=== PATIENT | female | born 1975 | race Caucasian/White ===

== ENCOUNTER 2025-07-20 19:38 | Observation (INO) | payer MEDICARE, OTHER, SELFPAY ==
[2025-07-20] VITALS (7 sets, daily range): BP systolic 128–173; BP diastolic 66–95; BMI 25.8; BMI 25.3; BMI 25.4
--- NOTE | 2025-07-20 15:11 | ED.GENMED ---
History of Present Illness
<Yoandy Lamas PA-C - Last Filed: 07/20/25 21:24>
General
Chief Complaint: Allergic Reaction
Time Seen by Provider: 07/20/25 14:56
History of Present Illness
History of Present Illness:
49-year-old female with history of severe anaphylaxis to numerous allergens presents to the emergency department for evaluation of chest tightness and full body rash. States that she suspects she came into contact with someone who had dog hair on
them. She used her EpiPen twice most recently 45 minutes prior to my evaluation. She reports chest tightness and hoarseness at this time. Rash seems to have resolved. She states that she has a lengthy history of complicated allergic reactions
and often times requires multiple day admission to the hospital for IV steroids to be slowly tapered
Review of Systems
<Yoandy Lamas PA-C - Last Filed: 07/20/25 21:24>
Review of Systems
Allergies reviewed?: Yes
All Other Systems: ROS reviewed and negative except as documented in HPI and ROS
Phy Exam
<Yoandy Lamas PA-C - Last Filed: 07/20/25 21:24>
Physical Exam
Physical Exam:
GEN: Well appearing, NAD, WDWN
HEENT: Oral mucosa moist, no scleral icterus
Cardiac: Mildly tachycardic, regular
Lung: No respiratory distress, no tachypnea, lungs clear to auscultation
MSK: No gross deformity or injuries
Skin: Good color, no pallor or jaundice, no rashes or urticaria
Neuro: AO x3, moves all extremities freely
Psych: Calm, cooperative
Course
<Yoandy Lmaas PA-C - Last Filed: 07/20/25 21:24>
Orders/Labs/Results
Orders:
Orders
07/20/25 14:48
EKG [Electrocardiogram (*1)] Urgent
Reason for Study: Tachycardia
07/20/25 14:49
EKG- Treatment ONCE
07/20/25 15:10
Diphenhydramine [Benadryl] 25 mg IV NOW STA
Famotidine [Pepcid] 20 mg IV NOW STA
MethylPREDNISolone PF [Solu-Medrol Pf] 60 mg IV NOW STA
07/20/25 15:11
Albuterol Nebs [Ventolin Nebules] 5 mg INH R NOW STA
07/20/25 15:30
Complete Blood Count/No Diff Urgent
Comprehensive Metabolic Panel Urgent
07/20/25 15:40
Ropinirole [Requip] 2 mg PO NOW STA
07/20/25 16:17
0.9% Sodium Chloride 1000 ml [Nss] 1,000 ml IV BOLUS
07/20/25 16:41
BMP [Basic Metabolic Panel] Stat
07/20/25 18:16
Potassium Chloride [KCl] 20 meq PO NOW STA
07/20/25 18:31
Diphenhydramine [Benadryl] 25 mg IV NOW STA
07/20/25 19:14
Admit/Transfer Patient As Directed
Co-Sign Provider:
Level of Care: Observation services
Assign to:: Telemetry
Physician / Group: Danilo Rojas
Diagnosis: allergic reaction
Reason for Telemetry: Arrhythmia
Date to Stop Telemetry: 07/23/25
Time to Stop Telemetry: 11:00
PRN Pain Medication Management As Directed
May give lesser potent ordered pain med per pt: Yes
preference::
Protocol:: Medication orders for pain may be administered in a
manner that supports deferring to patient preference
when the pt is:
- Requesting an ordered lesser potent pain medication.
Least to most potent pain medications are defined
as: acetaminophen < NSAID < tramadol < opioids
(morphine, oxycodone, hydromorphone).
- Requesting a lesser dose of the same medication IF
ORDERED.
- Requesting a less intrusive route of administration
if both routes are prescribed by the provider (PO <
IV).
07/20/25 19:15
Code Status As Directed
Resuscitation Status: Full Code
07/20/25 19:22
Potassium Chloride [KCl] 20 meq 0.9% Sodium Chloride 150 ml [Nss] 150 ml IV NOW
07/20/25 20:53
Diphenhydramine [Benadryl] 25 mg IV Q6HPRN PRN
07/20/25 20:53
Activity As Directed
Activity Level: Ambulate
Pneumatic Compression Sleeves As Directed
Type: Knee high
Vital Signs As Directed
Frequency: Per unit guidelines
Weight As Directed
Frequency: Once
Comment: on admission
Pulse Ox/spot Check [RESP] Routine
Quantity: 1
DX Deep Vein Thrombosis Video Routine
07/21/25 00:00
MethylPREDNISolone PF [Solu-Medrol Pf] 40 mg IV Q8H
07/21/25 Breakfast
Regular
Basic Metabolic Panel IN AM
07/23/25 11:00
DC Protocol for Telemetry ONCE
Abnormal Lab Results
07/20/25 07/20/25
15:30 16:41
WBC 11.2 H 10^3/uL
(4.8-10.8)
Sodium 165 H* mmol/L
(135-145)
Potassium 3.3 L mmol/L 2.8 L mmol/L
(3.5-5.1) (3.5-5.1)
Glucose 135 H mg/dl 114 H mg/dl
(70-99) (70-99)
ALT 41 H U/L
(0-35)
07/20/25 15:30
07/20/25 16:41
Vital Signs
Initial and Last Documented VS:
Initial Vital Signs
Temp Pulse Resp BP Pulse Ox
98.6 F 105 16 173/95 100
07/20/25 14:52 07/20/25 14:52 07/20/25 14:52 07/20/25 14:52 07/20/25 14:52
Last Documented Vital Signs
Temp Pulse Resp BP Pulse Ox
98.2 F 91 16 152/88 97
07/20/25 20:56 07/20/25 20:56 07/20/25 20:56 07/20/25 20:56 07/20/25 20:56
<Hunter Dinero, DO - Last Filed: 07/20/25 16:27>
Orders/Labs/Results
Orders:
Orders
07/20/25 14:48
EKG [Electrocardiogram (*1)] Urgent
Reason for Study: Tachycardia
07/20/25 14:49
EKG- Treatment ONCE
07/20/25 15:10
Diphenhydramine [Benadryl] 25 mg IV NOW STA
Famotidine [Pepcid] 20 mg IV NOW STA
MethylPREDNISolone PF [Solu-Medrol Pf] 60 mg IV NOW STA
07/20/25 15:11
Albuterol Nebs [Ventolin Nebules] 5 mg INH R NOW STA
07/20/25 15:30
Complete Blood Count/No Diff Urgent
Comprehensive Metabolic Panel Urgent
07/20/25 15:40
Ropinirole [Requip] 2 mg PO NOW STA
07/20/25 16:17
0.9% Sodium Chloride 1000 ml [Nss] 1,000 ml IV BOLUS
07/20/25 16:41
BMP [Basic Metabolic Panel] Stat
07/20/25 18:16
Potassium Chloride [KCl] 20 meq PO NOW STA
07/20/25 18:31
Diphenhydramine [Benadryl] 25 mg IV NOW STA
07/20/25 19:14
Admit/Transfer Patient As Directed
Co-Sign Provider:
Level of Care: Observation services
Assign to:: Telemetry
Physician / Group: Danilo Rojas
Diagnosis: allergic reaction
Reason for Telemetry: Arrhythmia
Date to Stop Telemetry: 07/23/25
Time to Stop Telemetry: 11:00
PRN Pain Medication Management As Directed
May give lesser potent ordered pain med per pt: Yes
preference::
Protocol:: Medication orders for pain may be administered in a
manner that supports deferring to patient preference
when the pt is:
- Requesting an ordered lesser potent pain medication.
Least to most potent pain medications are defined
as: acetaminophen < NSAID < tramadol < opioids
(morphine, oxycodone, hydromorphone).
- Requesting a lesser dose of the same medication IF
ORDERED.
- Requesting a less intrusive route of administration
if both routes are prescribed by the provider (PO <
IV).
07/20/25 19:15
Code Status As Directed
Resuscitation Status: Full Code
07/20/25 19:22
Potassium Chloride [KCl] 20 meq 0.9% Sodium Chloride 150 ml [Nss] 150 ml IV NOW
07/20/25 20:53
Diphenhydramine [Benadryl] 25 mg IV Q6HPRN PRN
07/20/25 20:53
Activity As Directed
Activity Level: Ambulate
Pneumatic Compression Sleeves As Directed
Type: Knee high
Vital Signs As Directed
Frequency: Per unit guidelines
Weight As Directed
Frequency: Once
Comment: on admission
Pulse Ox/spot Check [RESP] Routine
Quantity: 1
DX Deep Vein Thrombosis Video Routine
07/21/25 00:00
MethylPREDNISolone PF [Solu-Medrol Pf] 40 mg IV Q8H
07/21/25 Breakfast
Regular
Basic Metabolic Panel IN AM
07/23/25 11:00
DC Protocol for Telemetry ONCE
Abnormal Lab Results
07/20/25 07/20/25
15:30 16:41
WBC 11.2 H 10^3/uL
(4.8-10.8)
Sodium 165 H* mmol/L
(135-145)
Potassium 3.3 L mmol/L 2.8 L mmol/L
(3.5-5.1) (3.5-5.1)
Glucose 135 H mg/dl 114 H mg/dl
(70-99) (70-99)
ALT 41 H U/L
(0-35)
07/20/25 15:30
07/20/25 16:41
Vital Signs
Initial and Last Documented VS:
Initial Vital Signs
Temp Pulse Resp BP Pulse Ox
98.6 F 105 16 173/95 100
07/20/25 14:52 07/20/25 14:52 07/20/25 14:52 07/20/25 14:52 07/20/25 14:52
Last Documented Vital Signs
Temp Pulse Resp BP Pulse Ox
98.2 F 91 16 152/88 97
07/20/25 20:56 07/20/25 20:56 07/20/25 20:56 07/20/25 20:56 07/20/25 20:56
<Yoandy Lamas PA-C - Last Filed: 07/20/25 21:24>
MDM/Problems Addressed
MDM/Problems Addressed:
Patient is quite insistent that her allergy history will result in a rebound phenomenon and she is hesitant about going home. She was requesting repeat dosing of steroids and epinephrine which I do not feel is appropriate at this time. Will place
in observation for ongoing management
<Yoandy Lamas PA-C - Last Filed: 07/20/25 21:24>
Comment
Comment:
EKG independently interpreted by me shows a sinus tachycardia at a rate of [address] changes
*Pulse Oximetry
SaO2: 100
Oxygen Mode of Delivery: Room air
Patient hypoxic: no
*Critical Care Note
Total Time (30-74mins, 75-104mins- exclusive of procedures): Not Applicable
ED Attending Note
<Yoandy Lamas PA-C - Last Filed: 07/20/25 21:24>
-
Portions of this chart may have been created with voice recognition software.� Occasional wrong word or��sound alike� substitutions may have occurred due to the inherent limitations of voice recognition software.
<Hunter Dinero DO - Last Filed: 07/20/25 16:27>
ED Attending Note
Patient seen and examined by attending physician: Yes
I performed the substantive portion of visit, reviewed & personally made and approve the management plan that is documented in note by myself or ALEX.: Yes
ED Attending Note:
Seen with PA examined independently 49-year-old female severe allergies apparently was seen at [place] [address] recently with neurosymptoms discharged home was exposed to some dogs in a car that she recently bought, states she had some cough and wheeze
similar to her allergy anaphylaxis, received extensive meds, when I evaluated her respiratory rivera she appears stable her sodium was 161 she is unclear if she has been drinking fluids at this point I would repeat it, start her on normal saline, low
threshold to admit
Discharge Plan
Departure
Patient Disposition: Admit
Date of Disposition: 07/20/25
Time of Disposition: 17:50
Admit to: Med/Surg
Presentation/result/management discussed w/ accepting MD/DO: Hospitalist
Discharge Problem:
Allergic reaction
Interventions
Interventions:
*General Assessment Last Done: 07/20/25 14:57
*Neglect/Abuse Screening Last Done: 07/20/25 14:57
*ED COVID-19 Vaccine History Last Done: 07/20/25 21:02
*ED Influenza Vaccine History Last Done: 07/20/25 20:46
[facility] Fall Risk Assessment Tool Last Done: 07/20/25 18:00
*Risk Screen - Suicide (C-SSRS) Last Done: 07/20/25 20:46
*Nursing Disposition Last Done: 07/20/25 20:46
ED- Cardiac Assessment Last Done: 07/20/25 14:49
ED- Pulmonary Assessment Last Done: 07/20/25 14:49
ED-Skin Assessment Last Done: 07/20/25 14:49
Discharge Date and Time
Discharge Date/Time: 07/20/25 20:48
[2025-07-20] MEDS: VENTOLIN NEBULES 5 MG INH (15:35)
[2025-07-20] MEDS: PEPCID 20 MG IV (15:35)
[2025-07-20] MEDS: SOLU-MEDROL PF 60 MG IV (15:35)
[2025-07-20] MEDS: BENADRYL 25 MG IV ×2 (15:36→18:37)
[2025-07-20 15:50] LABS: Hematocrit 37.8 % (37.0-47.0); Hemoglobin 13.5 g/dL (12.0-16.0); Mean Corp Hgb Conc. 35.7 g/dL (33.0-37.0); Mean Corpuscular Volume 85.1 fL (81.0-99.0); Platelet Count 290 10^3/uL (130-400); Red Cell Dist. Width 12.2 % (11.5-14.5)
[2025-07-20 16:10] LABS: ALT (SGPT) 41 U/L (0-35); AST (SGOT) 34 U/L (14-36); Albumin 4.9 g/dl (3.5-5.0); Alkaline Phosphatase 77 U/L (38-126); Blood Urea Nitrogen 10 mg/dl (7-17); Calcium 9.8 mg/dl (8.4-10.2); Carbon Dioxide 23 mmol/L (22-30); Chloride 103 mmol/L (98-107); Estimated Creatinine Clearance 99 ml/min; Glucose 135 mg/dl (70-99); Potassium 3.3 mmol/L (3.5-5.1); Sodium 165 mmol/L (135-145); Total Protein 7.1 g/dl (6.3-8.2); eGFR > 60.00
[2025-07-20] MEDS: REQUIP 2 MG PO ×2 (16:50→23:01)
[2025-07-20] MEDS: NSS 1000 IV (16:52)
[2025-07-20 17:14] LABS: Blood Urea Nitrogen 9 mg/dl (7-17); Calcium 10.1 mg/dl (8.4-10.2); Carbon Dioxide 25 mmol/L (22-30); Chloride 106 mmol/L (98-107); Estimated Creatinine Clearance 99 ml/min; Glucose 114 mg/dl (70-99); Potassium 2.8 mmol/L (3.5-5.1); Sodium 139 mmol/L (135-145); eGFR > 60.00
--- NOTE | 2025-07-20 18:33 | HPS.HSE ---
Family Physician
-
Family Physician: Di Chakraborty
Chief Complaint
-
allergic reaction
History of Present Illness
Patient is a 49-year-old female with past medical history significant for severe anaphylaxis to numerous allergens who presented to [facility] ED for evaluation of anaphylactic response to exposure to dog dander. Patient report purchasing a new car and
tech has a dog and sat in car without informing her. When she got into car to leave she had anaphylactic response self administering 2 doses of epi. Patient notes she had reaction to cat dander yesterday and was discharged from [facility] too soon
which she believes contributed to today's response. Patient follows with, [facility], Dr. Walter Courtney for mooner. Patient reports severe itching, diffuse skin rash, thightness in chest, wheezing and shortness of breath.
Medical History
Past Medical History
Past Medical History: Reports Other
Additional Past Medical History:
severe anaphylaxis to numerous allergens
night terrors
type 2 diabetes
depression/anxiety
GERD
Hx SVT
Hx brain anuersym x2 (stable)
Past Surgical History: Reports Other
Additional Past Surgical History:
gastric bypass
cholecystectomy
cardiac ablation x2
spinal surgery
Social History
Tobacco: Non-smoker
Family History
Family History: Not pertinent
Allergies / Home Medications
Allergies reflects when Allergies were last updated in [employer].
Home Medications with original date entered in [employer]
Allergy/Medication List:
Allergies
Allergy/AdvReac Type Severity Reaction Status Date / Time
amoxicillin (From Augmentin) Allergy Unknown Verified 07/20/25 14:51
bee venom protein (honey bee) Allergy Anaphylaxis Verified 07/20/25 14:51
benzoin Allergy Rash Verified 07/20/25 14:51
cat dander Allergy Anaphylaxis Verified 07/20/25 14:51
clavulanic acid (From Allergy Unknown Verified 07/20/25 14:51
Augmentin)
dog dander Allergy Anaphylaxis Verified 07/20/25 14:51
Iodinated Contrast Media Allergy Anaphylaxis Verified 07/20/25 14:51
latex Allergy Rash Verified 07/20/25 14:51
nitrofurantoin (From Allergy Unknown Verified 07/20/25 14:51
Macrobid)
povidone-iodine (From Allergy Rash Verified 07/20/25 14:51
Betadine)
shellfish derived Allergy Anaphylaxis Verified 07/20/25 14:51
Sulfa (Sulfonamide Allergy Unknown Verified 07/20/25 14:51
Antibiotics)
tree nut Allergy Anaphylaxis Verified 07/20/25 14:51
Home Medications
Milk of Magnesia 1 dose PO DAILYPRN PRN constipation 07/20/25
Miralax 1 dose PO DAILYPRN PRN constipation 07/20/25
Phazyme 3 tab PO DAILYPRN PRN gas 07/20/25
krwvoxr-msveuwahuxili-lhjtlyuj 250 mg-250 mg-65 mg tablet (Headache Relief (PAB-tqqjbrnjzqog-zzcfkegm)) 2 tab PO DAILYPRN PRN headache 07/20/25
betamethasone dipropionate 0.05 % topical cream 1 applic topical DAILY PRN eczema 07/20/25
budesonide 0.5 mg/2 mL suspension for nebulization 0.5 mg inhalation R QIDPRN PRN sob 07/20/25
budesonide-formoterol HFA 160 mcg-4.5 mcg/actuation aerosol inhaler 2 puff inhalation .SEE BELOW PRN sob 07/20/25
bupropion HCl 200 mg tablet,12 hr sustained-release 0 mg PO .SEE BELOW Mental Health/Anxiety 07/20/25
diazepam 5 mg tablet 5 mg PO DAILYPRN PRN anxiety 07/20/25
epinephrine 2 mg/spray (0.1 mL) nasal spray (neffy) 2 mg intranasal ONCE PRN anaphylaxis 07/20/25
estradiol 0.05 mg/24 hr weekly transdermal patch 1 patch transdermal AVILES Hormonal Agent 07/20/25
famotidine 40 mg tablet 40 mg PO QPM Gastrointestinal Issue 07/20/25
fludrocortisone 0.1 mg tablet 0.1 mg PO BID Anti-Inflammatory 07/20/25
levalbuterol HCl 0.63 mg/3 mL solution for nebulization 0.63 mg inhalation R QIDPRN PRN sob 07/20/25
magnesium citrate 1 dose PO DAILYPRN PRN constipation 07/20/25
montelukast 10 mg tablet 10 mg PO QPM Lung/Breathing Issues 07/20/25
mupirocin 2 % topical ointment 1 applic topical QWEEK nose 07/20/25
pantoprazole 40 mg tablet,delayed release 40 mg PO BID Gastrointestinal Issue 07/20/25
ropinirole 1 mg tablet 1 mg PO DAILY PRN restless legs 07/20/25
ropinirole 1 mg tablet 1 mg PO NOON Neurological Condition 07/20/25
ropinirole 1 mg tablet 2 mg PO DAILY@1900 Neurological Condition 07/20/25
rosuvastatin 20 mg tablet 20 mg PO QPM High Cholesterol 07/20/25
tirzepatide 12.5 mg/0.5 mL subcutaneous pen injector (Mounjaro) 12.5 mg SC AVILES Diabetes 07/20/25
trazodone 100 mg tablet 100 mg PO HS PRN sleep 07/20/25
valacyclovir 500 mg tablet 500 mg PO DAILY Infection 07/20/25
methylprednisolone 4 mg tablet (Medrol) 4 mg PO DAILY #63 tabs 07/21/25
Review of Systems
-
History Source: Patient
Constitutional: Denies Fever or Chills
EENT: Reports Sore Throat and Other (tingling/itchy tongue )
Respiratory: Reports Trouble Breathing; Denies Cough or Hemoptysis
Cardiac: Reports Syncope; Denies Chest Pain, Diaphoresis or Palpitations
Abdomen/GI: Denies Abdominal Pain, Nausea, Vomiting or Diarrhea
: Denies Dysuria, Frequency or Urgency
Musculoskeletal: Denies Joint Pain
Skin: Reports Itching and Rash
Neurological: Reports Headache; Denies Dizzy, Weakness or Numbness
Physical Exam
Vital Signs
Vital Signs
Temp Pulse Resp BP Pulse Ox
98.2 F 106 16 164/89 100
07/20/25 15:03 07/20/25 15:03 07/20/25 15:03 07/20/25 15:03 07/20/25 15:11
Physical Exam
General: Well Developed, Well Nourished, No Apparent Distress and Conversant
HEENT: NormoCephalic, Moist mucous membranes, Nose Appears Normal and Ears Appear Normal
Respiratory: Clear and Non Labored Respirations; No Wheezes, Rales or Rhonchi
Cardiac: S1/S2 and Regular Rhythm; No Murmur
GI: Soft, Non Tender, Non Distended and Normal Bowel Sounds
Musculoskeletal: No Clubbing, No Cyanosis and No Edema
Skin: Warm and IV/Catheter Site; No Rash or Jaundice
Neuro: Awake and AO x 3
Psych: Calm
Laboratory Results
-
07/20/25 15:30
07/20/25 16:41
Laboratory Results
Total Bilirubin 0.5 mg/dl (0.2-1.3) 07/20/25 15:30
AST 34 U/L (14-36) 07/20/25 15:30
ALT 41 U/L (0-35) H 07/20/25 15:30
Alkaline Phosphatase 77 U/L (38-126) 07/20/25 15:30
Data Reviewed
-
Lab Data: Labs Reviewed by me (WBC 11.2, Na 165 and then 139, K 3.3 then 2.8)
Impression/Plan
-
IMPRESSION/PLAN:
#exposure to allergen with anaphylactic response
#severe anaphylaxis to numerous allergens
reports exposure to dog dander in [employer] car, itching, rash, wheezing, hoarseness in voice, patient self administered epi x2
WBC 11.2
s/p IV Benadryl 25 x 2 + IV Methylprednisone 60mg x1 + IV Pepcid + Nebs
- Admit to med/surg for observation
- Solu-Medrol 40mg q8
- Benadryl 25mg q6h PRN
- supportive care
#hypernatremia
Na 165 and then 139
received 1L bolus in ED and Na+ improved
- monitor BMP
#hypokalemia
K 3.3 then 2.8
repleted in ED with PO and K-rider
- monitor BMP
*pending med rec to be completed*
Code status: full code
DVT prophylaxis: SCDs
[2025-07-20] MEDS: KCL 20 MEQ PO (18:37)
--- NOTE | 2025-07-20 18:52 | W.PN.UPDATE ---
Update Note
Progress Note Update
This note serves as an addendum to the H&P by clamp carrier operator Darcy Santos
HPI
49F HX Poly pharmacy allergy, HX severe anaphylaxis to numerous allergens seen at ER:
- for evaluation of Carmel with full body rash.
- suspects she came into contact with someone who had dog hair on them.
- used her EpiPen twice most recently 45 minutes prior to ER evaluation.
- reports chest tightness and hoarseness at this time.
- Rash seems to have resolved.
ER Tx
- IV Benadryl 25 x2
- IV Methyl prednisone 60mg x1
- IV Pepcid
- Nebs
Relevant VS
Temp Pulse Resp BP Pulse Ox
98.2 F 99 18 148/85 99
07/20/25 18:00 07/20/25 18:00 07/20/25 18:00 07/20/25 18:00 07/20/25 18:00
PE
looks comfortable
HEENT: moist OM , Daisha tonsil
Neck: tachycardic
Lungs: CTA
Cor: Tachycardic
Abdomen:�soft, NT, NG, NRT
SHOE WORKER: AAO3
MS: No edema
Skin - warm and diffusely red on the chest
Relevant Data
07/20/25 07/20/25
15:30 16:41
WBC 11.2 H
Potassium 2.8 L
eGFR > 60.00
Glucose 114 H
ASSESSMENT & PLAN
Pending Rx reconciliation
Allergic reaction involving rash, Carmel and hoarseness of voice
- Uncertain precipitant suspect dog hair on them
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
- s/p - IV Benadryl 25 x 2 + IV Methylprednisone 60mg x1 + IV Pepcid + Nebs
- Empiric IV Methyl prednisone 40 q8H
- IV Benadryl 25mg q6h PRN
DVT Px: SCD
Full code
OBS TLM
[2025-07-20] MEDS: KCL 160 MEQ IV (19:35)
--- NOTE | 2025-07-20 22:25 | PTCARENOTE ---
Patient admitted to [facility].Patient IV K infusing upon transfer from ED.IV site flushed after infusion. Patient ordered SCDC's however patient declines use. States she is able to move around on her own. Patient education regarding use of SCDC
provided. Provider Laura Ruggiero aware. Patient resting in bed.
--- NOTE | 2025-07-20 22:33 | PTCARENOTE ---
Patient transferred to [facility].Patient IV K infusing upon transfer from ED.IV site flushed with 3ml NSS after infusion. Patient ordered SCDC's however patient declines use. States she is able to move around on her own. Patient education regarding use
of SCDC provided. Provider Laura Ruggiero aware. Patient states she has falls every 2 weeks from her ANS, RN informed patient a bed alarm would be utilized for safety concern, patients declined. Patient agreeable to calling staff if she needs to get
out of bed to go to the bathroom.Patient resting in bed. Call cagle within reach.
[2025-07-20] MEDS: SINGULAIR 10 MG PO (23:01)
[2025-07-20] MEDS: SOLU-MEDROL PF 40 MG IV (23:01)
[2025-07-20] MEDS: FLORINEF 0.1 MG PO (23:01)
[2025-07-20] MEDS: CRESTOR 20 MG PO (23:01)
[2025-07-20] MEDS: PROTONIX 40 MG PO (23:01)
--- NOTE | 2025-07-21 00:04 | PTCARENOTE ---
Pt received from ED via stretcher; Telemetry order> SR on monitor, VSS, no c/o pain. AAOx4. IV K infusing through LAC INT per order.
Standby assist oob to bathroom d/t hx of falls. Patient refusing MD Lili aware. Education provided regarding prophylactic use. Safety concerns regarding hx of falls discussed with pt, call cagle within reach, falls precaution reviewed with patient.
PMH and medications reviewed by this RN and pt. Plan of care discussed.
[2025-07-21] MEDS: PULMICORT 0.5 MG INH ×4 (00:09→20:20)
[2025-07-21] MEDS: MOTRIN 400 MG PO (01:03)
[2025-07-21] MEDS: BENADRYL 25 MG IV ×2 (01:03→20:33)
[2025-07-21 03:16] VITALS: BP 141/76
[2025-07-21 05:07] VITALS: BMI 25.0
[2025-07-21 08:00] VITALS: BP 146/83
[2025-07-21 08:42] LABS: Blood Urea Nitrogen 8 mg/dl (7-17); Calcium 9.6 mg/dl (8.4-10.2); Carbon Dioxide 25 mmol/L (22-30); Chloride 105 mmol/L (98-107); Estimated Creatinine Clearance 99 ml/min; Glucose 111 mg/dl (70-99); Potassium 4.4 mmol/L (3.5-5.1); Sodium 138 mmol/L (135-145); eGFR > 60.00
[2025-07-21] MEDS: VALIUM 5 MG PO (09:02)
[2025-07-21] MEDS: PROTONIX 40 MG PO ×2 (09:02→20:38)
[2025-07-21] MEDS: FLORINEF 0.1 MG PO ×2 (09:03→20:38)
[2025-07-21] MEDS: WELLBUTRIN SR (12 hour sustained release) 200 MG PO ×2 (09:03→20:38)
[2025-07-21] MEDS: SOLU-MEDROL PF 40 MG IV ×2 (09:03→15:52)
[2025-07-21] MEDS: VALTREX 500 MG PO (09:03)
[2025-07-21 11:05] VITALS: BP 161/90
--- NOTE | 2025-07-21 11:06 | W.PN.HOSP.TC ---
Today's Communication/Plan
-
Discharge
Assessment / Plan
Assessment / Plan
Gen-AAOx3, NAD
HEENT-NC, AT, anicteric, clear oral mm
Neck-supple
CV-reg, no M, +S1/S2
Lungs-clear B/L
Abd-soft, NT, ND
Ext-no edema
Musculoskeletal-no cyanosis, clubbing
Skin-warm and dry
Neuro-grossly non-focal
Psych-calm, cooperative
Possible allergic reaction -has multiple environmental and medication allergies.
Physical exam is benign. I hear no wheezing.
Vital signs are fine.
Medically stable for discharge today on steroid taper. 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 Walter Courtney. Spoke with one of the sheet manufacturing supervisor who recommended discharging on a 4 mg methylprednisolone taper starting at 4 tabs twice daily for 3 days and
tapering every 3 days.
Patient is to follow-up with the sheet manufacturing supervisor office. Follow-up with PCP.
She is agreeable to go home this afternoon.
Anxiety disorder -continue bupropion, diazepam.
Anticipated Discharge: Today
Subjective/Interval History
-
Date of Service: July 21, 2025
Patient seen and examined. Seems very anxious today.
Objective Data
-
Labs:
Laboratory Results
07/21/25
07:23
Sodium 138
Potassium 4.4 D
Chloride 105
Carbon Dioxide 25
BUN 8
Creatinine 0.6
Glucose 111 H
Calcium 9.6
Vital Signs:
Vital Signs
Temp Pulse Resp BP Pulse Ox
98.5 F 90 20 146/83 97
07/21/25 08:00 07/21/25 08:00 07/21/25 08:00 07/21/25 08:00 07/21/25 08:00
I&O
07/20/25 07/21/25 07/22/25
06:59 06:59 06:59
Intake Total 340 / 340
Balance 340 / 340
Review of Systems
-
History Source: Patient
All other systems: Reviewed and negative
--- NOTE | 2025-07-21 11:13 | W.DS.TRANS ---
DC Summary - [employer]
-
Discharge Instructions:
Discharge Diagnosis/Procedures Allergic reaction
Diet Regular
Activity As tolerated
Driving Restrictions As prior to admission
Bathing Restrictions None
Instructions:
Stand-Alone Forms:
Changes to Home Medications: No
Discharge Medications:
DC Medications w/original date entered in [facility]
Milk of Magnesia 1 dose PO DAILYPRN PRN constipation 07/20/25
Miralax 1 dose PO DAILYPRN PRN constipation 07/20/25
Phazyme 3 tab PO DAILYPRN PRN gas 07/20/25
ctyoysa-pulovjkzusmhm-ulxldpbp 250 mg-250 mg-65 mg tablet (Headache Relief (XPX-suyqijblpdyc-vrfmqkqr)) 2 tab PO DAILYPRN PRN headache 07/20/25
betamethasone dipropionate 0.05 % topical cream 1 applic topical DAILY PRN eczema 07/20/25
budesonide 0.5 mg/2 mL suspension for nebulization 0.5 mg inhalation R QIDPRN PRN sob 07/20/25
budesonide-formoterol HFA 160 mcg-4.5 mcg/actuation aerosol inhaler 2 puff inhalation .SEE BELOW PRN sob 07/20/25
bupropion HCl 200 mg tablet,12 hr sustained-release 0 mg PO .SEE BELOW Mental Health/Anxiety 07/20/25
diazepam 5 mg tablet 5 mg PO DAILYPRN PRN anxiety 07/20/25
epinephrine 2 mg/spray (0.1 mL) nasal spray (neffy) 2 mg intranasal ONCE PRN anaphylaxis 07/20/25
estradiol 0.05 mg/24 hr weekly transdermal patch 1 patch transdermal AVILES Hormonal Agent 07/20/25
famotidine 40 mg tablet 40 mg PO QPM Gastrointestinal Issue 07/20/25
fludrocortisone 0.1 mg tablet 0.1 mg PO BID Anti-Inflammatory 07/20/25
levalbuterol HCl 0.63 mg/3 mL solution for nebulization 0.63 mg inhalation R QIDPRN PRN sob 07/20/25
magnesium citrate 1 dose PO DAILYPRN PRN constipation 07/20/25
montelukast 10 mg tablet 10 mg PO QPM Lung/Breathing Issues 07/20/25
mupirocin 2 % topical ointment 1 applic topical QWEEK nose 07/20/25
pantoprazole 40 mg tablet,delayed release 40 mg PO BID Gastrointestinal Issue 07/20/25
ropinirole 1 mg tablet 1 mg PO DAILY PRN restless legs 07/20/25
ropinirole 1 mg tablet 1 mg PO NOON Neurological Condition 07/20/25
ropinirole 1 mg tablet 2 mg PO DAILY@1900 Neurological Condition 07/20/25
rosuvastatin 20 mg tablet 20 mg PO QPM High Cholesterol 07/20/25
tirzepatide 12.5 mg/0.5 mL subcutaneous pen injector (Mounjaro) 12.5 mg SC AVILES Diabetes 07/20/25
trazodone 100 mg tablet 100 mg PO HS PRN sleep 07/20/25
valacyclovir 500 mg tablet 500 mg PO DAILY Infection 07/20/25
methylprednisolone 4 mg tablet (Medrol) 4 mg PO DAILY #63 tabs 07/21/25
Home Medication Changes
Pending Results: No
[2025-07-21] MEDS: REQUIP 1 MG PO (11:19)
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
[2025-07-21 15:00] VITALS: BP 146/90
[2025-07-21] MEDS: REQUIP 2 MG PO (17:46)
[2025-07-21] MEDS: PEPCID 40 MG PO (17:47)
[2025-07-21] MEDS: SINGULAIR 10 MG PO (17:47)
[2025-07-21] MEDS: CRESTOR 20 MG PO (17:47)
[2025-07-21 19:36] VITALS: BP 155/96
[2025-07-21] MEDS: MIRALAX 17 GRAMS PO (22:32)
[2025-07-21] MEDS: DESYREL 100 MG PO (22:34)
[2025-07-21 23:52] VITALS: BP 157/100
[2025-07-22] MEDS: SOLU-MEDROL PF 40 MG IV ×2 (00:12→08:20)
[2025-07-22 03:00] VITALS: BP 121/67
[2025-07-22] MEDS: FLORINEF 0.1 MG PO (08:19)
[2025-07-22] MEDS: WELLBUTRIN SR (12 hour sustained release) 200 MG PO (08:19)
[2025-07-22] MEDS: VALTREX 500 MG PO (08:19)
[2025-07-22] MEDS: PROTONIX 40 MG PO (08:20)
[2025-07-22 08:30] VITALS: BP 147/85
--- NOTE | 2025-07-22 08:53 | W.PN.HOSP.TC ---
Today's Communication/Plan
-
Discharge
Assessment / Plan
Assessment / Plan
Gen-AAOx3, NAD
HEENT-NC, AT, anicteric, clear oral mm
Neck-supple
CV-reg, no M, +S1/S2
Lungs-clear B/L
Abd-soft, NT, ND
Ext-no edema
Musculoskeletal-no cyanosis, clubbing
Skin-warm and dry
Neuro-grossly non-focal
Psych-calm, cooperative
Possible allergic reaction -has multiple environmental and medication allergies.
Strongly consider supratemporal component to her complaints.
Physical exam is benign. I hear no wheezing.
Vital signs are fine.
Medically stable for discharge today on steroid taper. I called her drilling assistant's office, Dr. Walter Courtney. Spoke with one of the drilling assistant who recommended discharging on a 4 mg methylprednisolone taper starting at 4 tabs twice daily for 3 days and
tapering every 3 days.
Patient is to follow-up with the drilling assistant office. Follow-up with PCP.
Anxiety disorder -continue bupropion, diazepam.
Full code
Dispo -stable for discharge.
Follow-up with PCP, drilling assistant.
Anticipated Discharge: Today
Subjective/Interval History
-
Date of Service: July 22, 2025
Patient seen and examined, complaining of allergic reaction yesterday after exposure to employee with animals.
Objective Data
-
Vital Signs:
Vital Signs
Temp Pulse Resp BP Pulse Ox
98.2 F 69 18 147/85 97
07/22/25 08:30 07/22/25 08:30 07/22/25 08:30 07/22/25 08:30 07/22/25 08:30
I&O
07/21/25 07/22/25 07/23/25
06:59 06:59 06:59
Intake Total 340 / 340 1470 / 1470
Balance 340 / 340 1470 / 1470
Review of Systems
-
History Source: Patient
All other systems: Reviewed and negative
--- NOTE | 2025-07-22 10:00 | CM ---
Patient seen at bedside. Patient with no needs and plan is for discharge home today. Patient plan is to drive self home. CM will continue to follow for discharge planning needs.
Plan; home with no needs
== END 2025-07-22 12:08 | disposition home or self-care (01) ==
LOC: 2 NORTH 19:38
PROVIDERS: Nurse Practitioner Family; Physician Assistant; ADMITTING PHYSICIAN Internal Medicine; ATTENDING PHYSICIAN Hospitalist; EMERGENCY PHYSICIAN Emergency Medicine; FAMILY PHYSICIAN Internal Medicine Allergy & Immunology
DX: R07.89 Other chest pain (principal); R00.0 Tachycardia, unspecified; R49.0 Dysphonia; I49.9 Cardiac arrhythmia, unspecified; F41.9 Anxiety disorder, unspecified; R21 Rash and other nonspecific skin eruption; F32.A Depression, unspecified; J30.81 Allergic rhinitis due to animal (cat) (dog) hair and dander; E87.0 Hyperosmolality and hypernatremia; E87.6 Hypokalemia; K21.9 Gastro-esophageal reflux disease without esophagitis; E11.9 Type 2 diabetes mellitus without complications; Z88.1 Allergy status to other antibiotic agents; Z88.3 Allergy status to other anti-infective agents; Z91.030 Bee allergy status; Z91.041 Radiographic dye allergy status; Z91.040 Latex allergy status; Z91.018 Allergy to other foods; Z88.0 Allergy status to penicillin; Z91.013 Allergy to seafood; Z88.2 Allergy status to sulfonamides; Z88.8 Allergy status to other drugs, medicaments and biological substances; Z90.49 Acquired absence of other specified parts of digestive tract; Z98.84 Bariatric surgery status; Z79.899 Other long term (current) drug therapy; Z79.624 Long term (current) use of inhibitors of nucleotide synthesis; Z79.52 Long term (current) use of systemic steroids; Z60.2 Problems related to living alone
CPT/HCPCS: 80048; 80053; 85027; 93005; 94640; 96361; 96375; 96376; 99285; G0378